=== PATIENT | female | born 1940 | race Caucasian/White ===

== ENCOUNTER 2016-10-24 18:52 | Observation (INO) | payer MEDICARE, OTHER ==
[2016-10-24] MEDS ORDERED: Aspirin 81 MG Tab.Chew PO ONE (19:07)
[2016-10-24] MEDS ORDERED: Morphine 4 MG/ML Syringe IVPUSH ONE (19:08)
[2016-10-24] MEDS: Iopamidol 612 MG/ML 100 ML Bottle IVPUSH ONE ×2 (19:17→19:47)
[2016-10-24] MEDS ORDERED: Sodium Chloride 0.9% 1,000 ML IV ONE (19:30)
[2016-10-24 20:08] LABS: CHLORIDE,CL 104 mmol/L (101-111); SODIUM,NA 139 mmol/L (135-145)
[2016-10-24] MEDS ORDERED: Acetaminophen/HYDROcodone 325-10 MG Tab PO ONE (22:05)
[2016-10-24] MEDS ORDERED: HYDROmorphone 1 MG/ML Syringe IVPUSH ONE (23:12)
[2016-10-24] MEDS ORDERED: Famotidine 20 MG/2 ML SDV IVPUSH ONE (23:27)
--- NOTE | 2016-10-25 00:28 | EDM.PDOC ---
ED HISTORY OF PRESENT ILLNESS - General Chief Complaint: Cardiovascular Problem Stated Complaint: AMB Time Seen by Provider: 10/24/16 19:00 Source of Information: Reports: Patient, EMS History Limitations: Reports: No limitations - History of Present Illness INITIAL COMMENTS - FREE TEXT/NARRATIVE: Ed with c/o diarrhea 50 times today, severe back pain starting in chest radiating to back. Patient points upper epigastric when localizing chest pain. No vomiting. ill with milder symptoms this week. Hx PAT. EMS note VS stable enroute. Rates pain in back at bra line 10/10. Pain started this am, worse tonight. No injury. Severity: severe Location, General: Reports: back Quality: Reports: Pressure, Sharp Associated Symptoms (General): Reports: loss of appetite. Denies: cough, diaphoresis, fever/chills, nausea/vomiting Treatments [employer]: Reports: Other (see below) (immodium at 3pm) - Related Data Allergies/ADRs: Allergies Allergy/AdvReac Type Severity Reaction Status Date / Time caffeine Allergy Cannot Verified 10/24/16 18:52 Remember Penicillins Allergy Cannot Verified 10/24/16 18:52 Remember propoxyphene Allergy UNKNOWN Verified 10/24/16 18:52 Sulfa (Sulfonamide Allergy Cannot Verified 10/24/16 18:52 Antibiotics) Remember Home Meds: Home Meds Metoprolol Succinate [Toprol XL] 50 mg PO DAILY 08/16/13 [History] Rivaroxaban [Xarelto] 20 mg PO DAILY 10/14/14 [History] Diltiazem HCl [Cartia Xt] 1 cap PO DAILY 10/24/16 [History] Flecainide [Tambocor] 50 mg PO BID 10/24/16 [History] Past Medical History HEENT History: Reports: None Cardiovascular History: Reports: Afib Respiratory History: Reports: None Gastrointestinal History: Reports: None Genitourinary History: Reports: UTI, recurrent ENROLLED AGENT History: Reports: None Musculoskeletal History: Reports: None Neurological History: Reports: None Psychiatric History: Reports: Depression Hematologic History: Reports: None Dermatologic History: Reports: None - Infectious Disease History Infectious Disease History: Reports: Chicken pox - Past Surgical History GI Surgical History: Reports: Appendectomy, Cholecystectomy Female Surgical History: Reports: Hysterectomy Musculoskeletal Surgical History: Reports: Hip replacement Social & Family History - Tobacco Use Smoking Status *Q: Never Smoker Second Hand Smoke Exposure: No - Caffeine Use Caffeine Use: Reports: None - Alcohol Use Days Per Week of Alcohol Use: 0 - Recreational Drug Use Recreational Drug Use: No ED ROS GENERAL - Review of Systems Review Of Systems: See Below Constitutional: Reports: no symptoms, chills, decreased appetite HEENT: Reports: No symptoms Respiratory: Reports: No Symptoms Cardiovascular: Reports: Chest pain (radiates to back) ED EXAM, GENERAL - Physical Exam Exam: See Below Exam Limited By: No limitations General Appearance: alert, moderate distress, obese Eye Exam: bilateral eye: EOMI, PERRL Ears: normal external exam Nose: normal inspection Throat/Mouth: Normal inspection Head: atraumatic, normocephalic Neck: normal inspection, full range of motion Respiratory/Chest: no respiratory distress, lungs clear, normal breath sounds Cardiovascular: normal peripheral pulses, regular rate, rhythm GI/Abdominal: abnormal bowel sounds: (hyperactive). No: distended Back Exam: paraspinal tenderness (mid thoracic), vertebral tenderness Extremities: normal inspection, normal range of motion Neurological: alert, oriented, normal cognition Psychiatric: flat affect Skin Exam: Warm, Dry, Intact, Normal color Course - Vital Signs Last Recorded V/S: Last Vital Signs Temp 96.8 F 10/24/16 18:53 Pulse 62 10/24/16 23:36 Resp 18 10/24/16 23:36 BP 91/41 L 10/24/16 23:36 Pulse Ox 97 10/24/16 23:36 - Orders/Labs/Meds Orders: Active Orders 24 hr Category Date Time Status EKG 12 Lead [EKG Documentation Completion] [RC] STAT Care 10/24/16 18:59 Active EKG 12 Lead [EKG Documentation Completion] [RC] URGENT Care 10/24/16 18:59 Inactive CULTURE BLOOD [BC] Stat Lab 10/24/16 19:10 Received CULTURE BLOOD [BC] Stat Lab 10/24/16 20:40 Results UA W/MICROSCOPIC [URIN] Stat Lab 10/24/16 18:56 Uncollected Blood Culture x2 Reflex Set [OM.PC] Stat Oth 10/24/16 18:56 Ordered Labs: Laboratory Tests 10/24/16 10/24/16 10/24/16 Range/Units 19:10 19:10 19:10 WBC 14.6 H (5.0-10.0) 10^3/uL RBC 4.59 (4.2-5.4) 10^6/uL Hgb 15.0 (12.0-16.0) g/dL Hct 43.1 (37.0-47.0) % MCV 93.9 (80-100) fL MCH 32.7 (27.0-34.0) pg MCHC 34.8 (33.0-35.0) g/dL Plt Count 227 (150-450) 10^3/uL Neut % (Auto) 92.9 H (42.2-75.2) % Lymph % (Auto) 3.5 L (20.5-50.1) % [place] % (Auto) 3.1 (2-8) % Eos % (Auto) 0.4 L (1.0-3.0) % Baso % (Auto) 0.1 (0.0-1.0) % D-Dimer, Quantitative 108 (0-400) ng/mL Sodium 139 (135-145) mmol/L Potassium 3.5 L (3.6-5.0) mmol/L Chloride 104 (101-111) mmol/L Carbon Dioxide 25.0 (21.0-31.0) mmol/L Anion Gap 13.5 BUN 15 (7-18) mg/dL Creatinine 0.6 (0.6-1.3) mg/dL Est Cr Clr Drug Dosing 71.03 mL/min Estimated GFR (MDRD) > 60 BUN/Creatinine Ratio 25.00 Glucose 118 H (74-105) mg/dL Lactic Acid (0.5-2.2) mmol/L Calcium 8.5 (8.4-10.2) mg/dl Magnesium 1.6 L (1.8-2.5) mg/dL Total Bilirubin 1.1 H (0.2-1.0) mg/dL AST 48 H (10-42) IU/L ALT 27 (10-60) IU/L Alkaline Phosphatase 92 (42-121) IU/L Troponin I 0.02 (0.00-0.02) ng/ml C-Reactive Protein (0.0-1.3) mg/dL B-Natriuretic Peptide 139 H (0-100) pg/ml Total Protein 6.5 L (6.7-8.2) g/dl Albumin 3.6 (3.2-5.5) g/dl Globulin 2.9 Albumin/Globulin Ratio 1.24 Amylase 52 (28-100) U/L Lipase 33 (22-51) U/L 10/24/16 10/24/16 10/24/16 Range/Units 19:10 20:40 23:00 WBC (5.0-10.0) 10^3/uL RBC (4.2-5.4) 10^6/uL Hgb (12.0-16.0) g/dL Hct (37.0-47.0) % MCV (80-100) fL MCH (27.0-34.0) pg MCHC (33.0-35.0) g/dL Plt Count (150-450) 10^3/uL Neut % (Auto) (42.2-75.2) % Lymph % (Auto) (20.5-50.1) % [place] % (Auto) (2-8) % Eos % (Auto) (1.0-3.0) % Baso % (Auto) (0.0-1.0) % D-Dimer, Quantitative (0-400) ng/mL Sodium (135-145) mmol/L Potassium (3.6-5.0) mmol/L Chloride (101-111) mmol/L Carbon Dioxide (21.0-31.0) mmol/L Anion Gap BUN (7-18) mg/dL Creatinine (0.6-1.3) mg/dL Est Cr Clr Drug Dosing mL/min Estimated GFR (MDRD) BUN/Creatinine Ratio Glucose (74-105) mg/dL Lactic Acid 1.5 (0.5-2.2) mmol/L Calcium (8.4-10.2) mg/dl Magnesium (1.8-2.5) mg/dL Total Bilirubin (0.2-1.0) mg/dL AST (10-42) IU/L ALT (10-60) IU/L Alkaline Phosphatase (42-121) IU/L Troponin I 0.02 (0.00-0.02) ng/ml C-Reactive Protein 2.2 H (0.0-1.3) mg/dL B-Natriuretic Peptide (0-100) pg/ml Total Protein (6.7-8.2) g/dl Albumin (3.2-5.5) g/dl Globulin Albumin/Globulin Ratio Amylase (28-100) U/L Lipase (22-51) U/L Meds: Medications Discontinued Medications Generic Name Dose Route Start Last Admin Trade Name Kyreeq PRN Reason Stop Dose Admin Hydrocodone Bitart/Acetaminophen 1 tab 10/24/16 22:05 10/24/16 22:13 Cameron 325-10 Mg PO 10/24/16 22:06 1 tab ONETIME ONE Administration Aspirin 324 mg 10/24/16 19:07 10/24/16 19:32 Aspirin PO 10/24/16 19:08 Not Given ONETIME ONE Famotidine 20 mg 10/24/16 23:27 10/24/16 23:30 Pepcid IVPUSH 10/24/16 23:28 20 mg ONETIME ONE Administration Hydromorphone HCl 0.5 mg 10/24/16 23:12 10/24/16 23:31 Dilaudid IVPUSH 10/24/16 23:13 0.5 mg ONETIME ONE Administration Sodium Chloride 1,000 mls @ 999 mls/hr 10/24/16 19:30 10/24/16 19:50 Normal Saline IV 10/24/16 20:30 999 mls/hr .BOLUS ONE Administration Iopamidol 100 ml 10/24/16 19:03 10/24/16 19:47 Isovue-300 (61%) IVPUSH 10/24/16 19:04 100 ml ONETIME ONE Administration Morphine Sulfate 4 mg 10/24/16 19:08 10/24/16 19:17 Morphine IVPUSH 10/24/16 19:09 4 mg ONETIME ONE Administration - Radiology Interpretation Free Text/Narrative:: CHEST abdomen and pelvis. 3cm thyroid nodule, Chest negative, T spine degenerative changes, No dissection, Abdomen no obstruction, diverticulosis - Re-Assessments/Exams Free Text/Narrative Re-Assessment/Exam: 10/25/16 00:[address]KG [address] elevation inferior. EKG's faxed and reviewed with art specialist. Recommended repeat since fluid bolus. If troponin normal treat GI symptoms. Repeat returned to baseline. BP improved with IVF. Pain decrease 5/ 10 after morphine. Hydrocodone 10/325 no change. Dilaudid 0.5mg for back pain. No further diarrhea stools during ED visit. Repeat troponin negative. Telmetry maintain NSR 70's. Dr. Bailey accepting of patient for gastroenteritis, and back pain- observation. Departure - Departure Time of Disposition: 23:50 Disposition: Admitted As Inpatient 68 Condition: fair Clinical Impression: Paroxysmal supraventricular tachycardia, Gastroenteritis, Dehydration Back pain Qualifiers: Back pain location: thoracic back pain Chronicity: acute Back pain laterality: midline Qualified Code(s): M54.6 - Pain in thoracic spine - My Orders Last 24 Hours: My Active Orders 10/24/16 18:56 UA W/MICROSCOPIC [URIN] Stat Blood Culture x2 Reflex Set [OM.PC] Stat 10/24/16 18:59 EKG 12 Lead [EKG Documentation Completion] [RC] STAT EKG 12 Lead [EKG Documentation Completion] [RC] URGENT 10/24/16 19:10 CULTURE BLOOD [BC] Stat 10/24/16 20:40 CULTURE BLOOD [BC] Stat - Assessment/Plan Last 24 Hours: My Active Orders 10/24/16 18:56 UA W/MICROSCOPIC [URIN] Stat Blood Culture x2 Reflex Set [OM.PC] Stat 10/24/16 18:59 EKG 12 Lead [EKG Documentation Completion] [RC] STAT EKG 12 Lead [EKG Documentation Completion] [RC] URGENT 10/24/16 19:10 CULTURE BLOOD [BC] Stat 10/24/16 20:40 CULTURE BLOOD [BC] Stat
[2016-10-25] MEDS ORDERED: Zolpidem 5 MG Tab PO PRN (01:28)
[2016-10-25] MEDS ORDERED: Promethazine 25 MG/ML SDV IM PRN (01:28)
[2016-10-25] MEDS ORDERED: Morphine 2 MG/ML Syringe IVPUSH PRN (01:28)
[2016-10-25] MEDS ORDERED: Acetaminophen 325 MG Tab PO PRN (01:28)
[2016-10-25] MEDS ORDERED: Ondansetron 4 MG/2 ML SDV IVPUSH PRN (01:28)
[2016-10-25] MEDS: Sodium Chloride 0.9% with KCl 1,000 ML IV SCH ×2 (03:38→14:24)
--- NOTE | 2016-10-25 05:18 | HP ---
CHIEF COMPLAINT: Profuse diarrhea and chest pain. HISTORY OF PRESENTING ILLNESS: Mrs. Trever Oconnell is a 76-year-old female with medical history significant for hypertension, hyperlipidemia, atrial fibrillation, on chronic anticoagulation with Xarelto, history of severe osteoarthritis, requiring bilateral hip replacement, status post hysterectomy, presented to the ER earlier today with complaints of increasing diarrhea and also increasing chest pain. As per the patient and her at bedside, the patient started having this profuse diarrhea early yesterday and had multiple episodes of loose stools, which were watery in nature. No blood seen in the loose stools. At around 4 p.m., she started having this back pain, which was in between the shoulder blades along the bra line, which was around 8 to 9/10 in intensity, no clear aggravating factors, relieved with pain medication, nonradiating type of pain, not associated with any shortness of breath. She denied any history of similar complaints in the past. She denies any fevers or chills in the last few days. No cough with sputum in the last few days. No complaints of abdominal pain. No other family members sick like her, but last week both and had some stomach upset, but no nausea or vomiting at that time. She claims that the pain has much improved after receiving the pain medications. The patient denied any history of chest pains on exertion. No history of dyspnea on exertion. No history of orthopnea or paroxysmal nocturnal dyspnea. The patient denied any history of hematemesis, hematochezia, or melanotic stools. Normal bowel and bladder habits otherwise. REVIEW OF SYSTEMS: A complete review of system including skin, ear, nose, and throat, cardiovascular system, respiratory system, gastrointestinal system, genitourinary system, hematology, oncology, neurology, allergy, immunology, endocrinology, constitutional were all evaluated and were negative except for the above-said notes. PAST MEDICAL HISTORY: Significant for hypertension, hyperlipidemia, atrial fibrillation, on chronic anticoagulation with Xarelto, fibromyalgia, osteoarthritis, anxiety. PAST SURGICAL HISTORY: Significant for total abdominal hysterectomy with bilateral salpingo-oophorectomy, skin biopsies, hysterectomy, diagnostic colonoscopy, cardiac catheterization, atrial cardioversion, breast biopsy. FAMILY HISTORY: Significant for colon cancer in her mother. SOCIAL HISTORY: The patient denied any history of smoking tobacco. No history of alcohol intake. ALLERGIES: The patient noted to have allergies to caffeine, which causes irregular heart rate. Propoxyphene, which causes near-syncopal episode. Penicillin, which causes itching. Sulfa antibiotics, which causes itching. HOME MEDICATIONS: Include: 1. Xarelto 20 mg daily. 2. Toprol-XL 50 mg daily. 3. Flecainide 50 mg twice a day. 4. Diltiazem 1 tablet daily. PHYSICAL EXAMINATION: Vital signs: Temperature of 99.2, pulse of 70, blood pressure of 109/42, respiratory rate of 20, saturating at 97%. General Appearance: The patient is well oriented to time, place, and person. Follows commands spontaneously. Cardiovascular: S1, S2 heard with normal intensity. No gallops. Respiratory: Clear to auscultation bilaterally. No wheeze. No crepitations. Abdomen: Soft. Bowel sounds positive. Nontender. No rigidity. Extremities: No edema in bilateral lower extremities. Neurology: No gross focal neurological deficits. Skin: No acute rash noted. LABS: WBC 14.6, hemoglobin 15, hematocrit 43.1, platelet count 227. D-dimer 108. Sodium 139, potassium 3.5, chloride 104, bicarb 25, BUN 15, creatinine 0.6, glucose 118, lactic acid 1.5. B-natriuretic peptide 139, troponin 0.02 x2. Albumin 3.6, lipase 33. Amylase 52. ASSESSMENT: 1. Profuse diarrhea. 2. Back pain. 3. Acute hypokalemia. 4. Acute hypomagnesemia. 5. Leukocytosis. 6. Hypertension. 7. Atrial fibrillation. 8. Chronic anticoagulation with Xarelto. 9. Fibromyalgia. 10.Anxiety. PLAN: 1. Profuse diarrhea. The patient presents with profuse diarrhea, exact etiology not clear. The patient denied any recent use of antibiotic usage. No other family member sick at home. She denied any purchasing outside food recently. We will obtain stool for C. diff toxin at this time. We will keep her hydrated with IV fluids. She started throwing up after receiving pain medications, so we will have her on antiemetic protocol. We will have her on Zofran as needed to keep her hydrated with IV fluids. 2. Acute hypokalemia. This is mainly from volume loss. We will have her on oral potassium chloride and also have potassium chloride mixed in her normal saline bag. We will recheck a basic metabolic panel in a.m. 3. Hypomagnesemia. Again, from volume loss. We will have her on oral magnesium. 4. Leukocytosis. This could be reactive in nature. The patient denied any fevers or chills. No cough with sputum. CT chest, abdomen, pelvis benign without any signs of infection. We will await for urinalysis, no indication for antibiotics at this time. 5. Hypertension. The patient's blood pressure seems to be on the lower side. We will need to hold antihypertensive medications for systolic blood pressure less than 110. 6. DVT prophylaxis. The patient is currently on Xarelto, we will continue the same. 7. CODE STATUS: The patient wants to be full code. 8. Discussed with Soledad, ER physician, regarding the plan of care. Reviewed the labs and medications. Reviewed the old charts. [facility] /[id number]
[2016-10-25 07:16] LABS: CHLORIDE,CL 110 mmol/L (101-111); SODIUM,NA 140 mmol/L (135-145)
[2016-10-25] MEDS: Metoprolol Succinate 50 MG Tab.ER PO SCH (08:41)
[2016-10-25] MEDS: Pantoprazole 40 MG Vial IVPUSH SCH ×2 (08:42→21:40)
[2016-10-25] MEDS ORDERED: FLECAINIDE 50 MG PO SCH (09:00)
[2016-10-25] MEDS: FLECAINIDE 100 MG PO SCH ×2 (11:28→21:37)
[2016-10-25] MEDS: Rivaroxaban 10 MG Tab PO SCH (12:40)
--- NOTE | 2016-10-25 13:06 | EKG ---
10/24/2016 - ANABELL BUSH - A 12-lead EKG shows normal sinus rhythm with heart rate of 68, nonspecific ST changes noted on leads II, III, and aVF. No significant ST elevation or ST depression noted on this 12-lead EKG. [facility] /[id number]
[2016-10-25] MEDS ORDERED: Rivaroxaban 10 MG Tab PO SCH (18:00)
[2016-10-25] MEDS: Potassium Chloride 10 MEQ Tab.ER PO SCH (18:51)
[2016-10-26] MEDS: Sodium Chloride 0.9% with KCl 1,000 ML IV SCH ×3 (01:14→23:35)
[2016-10-26] MEDS: Rivaroxaban 10 MG Tab PO SCH (08:39)
[2016-10-26] MEDS: Metoprolol Succinate 50 MG Tab.ER PO SCH (08:39)
[2016-10-26] MEDS: Potassium Chloride 10 MEQ Tab.ER PO SCH ×2 (08:44→18:15)
[2016-10-26] MEDS: FLECAINIDE 100 MG PO SCH ×2 (08:47→21:01)
[2016-10-26] MEDS: Pantoprazole 40 MG Vial IVPUSH SCH ×2 (08:47→21:03)
[2016-10-27 07:56] VITALS: BP 117/61
--- NOTE | 2016-10-27 08:37 | PN ---
DATE: 10/26/2016 HISTORY OF PRESENT ILLNESS: Felicity is a 76-year-old lady, who presented with symptoms of acute gastroenteritis. She had profuse diarrhea, some nausea, no vomiting initially. She denied any blood in the stool. She denied any fever or chills. She did have some associated back pain, but the etiology of this was unclear. She denied any travel outside the country. No exposure to ill individuals, although today when I spoke with her and her regarding that, they had been around a number of young children on Sunday and some of them did have some GI symptoms. It is possible that this is the factor in this illness. She was evaluated in the emergency room. At the time of admission, she was found to have a white count of 14.6, with a left shift. Potassium was 3.5. Renal function was intact with a GFR of more than 60. C-reactive protein was elevated at 2.2. Troponin was negative at 0.02. She has had a total of 3 troponins, which have all been negative. Urinalysis was unremarkable. Two sets of blood cultures remain without growth. Stool for C. diff has been sent and is pending. Review of her clinical data shows that she is taking in adequate fluids. She still has saline running. Appetite has been slowly improving. She is tolerating the diet. She did have some limited nausea with 1 episode of vomiting. She is down to 2-3 stools in the last day, but still feels tired and unwell. PHYSICAL EXAMINATION: General: She was lying in bed. was present in the room. She was in no distress. She participated throughout the visit. Vital Signs: Blood pressure was 111/57, pulse 70, respiratory rate 20, oxygen saturation 96% on room air, temperature was 99.3, T-max overnight was 100.7. She denied any pain. HEENT: Showed mucous membranes to be moist and not dry. Sclerae were nonicteric. No adenopathy. Chest: Showed clear, but diminished bilateral breath sounds. Heart: Showed regular rate and rhythm. Abdomen: Obese, soft, benign. Completely nontender to palpation. No guarding. No rebound. Extremities: Calves were soft and nontender. There were palpable peripheral pulses. Skin: Warm and dry. No rashes. LABORATORY DATA: Repeat lab work this morning shows white count down to 8.2, hemoglobin and hematocrit were 13 and 39, potassium was 3.4. Remainder of the electrolytes were unremarkable. Renal function remained intact, with a GFR of more than 60. Blood sugars are being monitored and have been acceptable, this morning was 106. For now, we will continue with the current medications which consist of IV fluids with potassium supplement, as well as oral potassium supplement. She continues on the her usual medications. We will turn the IV fluids down a bit, and we will re-evaluate her in the morning. If she is feeling better, we may consider discharge to home. No other changes are made in her care today. She is encouraged to be up and out of bed. [facility] /[id number] ARI
[2016-10-27] MEDS: FLECAINIDE 100 MG PO SCH (09:16)
[2016-10-27] MEDS: Potassium Chloride 10 MEQ Tab.ER PO SCH (09:16)
[2016-10-27] MEDS: Rivaroxaban 10 MG Tab PO SCH (09:17)
[2016-10-27] MEDS: Metoprolol Succinate 50 MG Tab.ER PO SCH (09:17)
[2016-10-27] MEDS: Pantoprazole 40 MG Vial IVPUSH SCH (09:18)
--- NOTE | 2016-11-16 08:21 | DISCH ---
DISCHARGE DIAGNOSES: 1. Acute gastroenteritis with profuse diarrhea, resolving. 2. Acute hypokalemia, resolved. 3. Hypomagnesemia, resolved. 4. Acute back pain, resolved. 5. Remainder of past medical history as documented in the admission history and physical. BRIEF HISTORY OF PRESENT ILLNESS: Mrs. Perera is a 76-year-old lady, who presented to the emergency room with a 2-day history of numerous profuse loose stools. Stools were watery without blood. She had some nausea, but no vomiting at the time of admission, but later she had limited, 1 or 2, episodes of emesis. Prior to coming to the ER, she developed an acute back pain between the shoulder blades which she rated it about 8 to 9/10. There was no central chest pressure, no radiation, and no shortness of breath. No fever or chills. No cough. No abdominal pain. Initially she and her stated that no other family members were ill, but on her 2nd hospital day, they did say that they had been around some young children over Easter weekend, some of them with GI symptoms. Whether this was a contributing factor, it is unknown. After evaluation, she was admitted as an acute inpatient. PERTINENT LABS AND X-RAYS: CBC on day of admission showed a white count of 14.6 with a left shift. White count was 8.2 prior to discharge. Hemoglobin and hematocrit were 12.5 and 37. Platelets were normal. Chemistry showed an initial potassium of 3.5, which went down to 3.4 on the 2nd day, but normalized at 4.5 prior to discharge. Renal function was intact with a GFR of more than 60. LFTs were unremarkable. Magnesium was low at 1.6 and was repleted, and on recheck was normal. C-reactive protein was elevated at 2.2. 3 troponins were negative. BNP was only minimally elevated at 139. Amylase and lipase within normal limits. Urinalysis showed a slightly cloudy yellow urine with a specific gravity of 1.015. It was an unremarkable microscopic exam. Two sets of blood cultures showed no growth. Stool was collected and tested for C. difficile and this was negative for toxigenic C difficile. 12-lead EKG was obtained because of her complaint of the central back pain. The EKG showed a normal sinus rhythm with a ventricular rate of 75, normal axis, first-degree AV block. No acute ST-T wave changes. CT scans of the chest, abdomen, and pelvis were obtained with the use of IV contrast. CT scan of the chest showed no acute cardiopulmonary findings. CT scan of the abdomen and pelvis showed no acute intraabdominal pathology. There was no significant interval change when compared to previous study performed on August 28, 2016. HOSPITAL COURSE: She initially was on telemetry and this showed a consistent normal sinus rhythm with no ectopy. She was started on IV fluids with normal saline; this was later switched to normal saline with potassium supplement. She was given IV magnesium as well, to correct her hypomagnesemia. For her back pain, she received limited IV morphine with resolution. Her usual medications were continued. She was given IV Protonix. She was placed on a 2-g sodium diet. She was already on Xarelto, and this was continued for VTE prophylaxis. Review of her clinical data showed she had good oral intake. She was voiding. Initially she had multiple bowel movements, but these decreased following admission. Appetite gradually improved and she was tolerating her diet. Vital signs were stable. She remained afebrile and had only a single temperature of 100.7 on the evening of the 1st hospital day, otherwise was afebrile. She continued to improve. Her IV fluids were hep-locked, and she was encouraged to be out of bed. She tolerated the increase in activity as well as the diet. On day of discharge, she felt ready to go home. She will continue her usual medications and follow regular diet as tolerated. She was also given instructions for a BRAT diet. She was instructed to avoid eating fats and dairy products too soon. Activity level will be as tolerated. She should seek recheck if she develops fever, increased pain, or has more nausea, vomiting, or diarrhea. She will follow up with her personal physician, Dr. Kulkarni in [place]. She also has upcoming followup with Cardiology in October as well. PHYSICAL EXAMINATION: Vital Signs: On the day of discharge showed a blood pressure of 117/61, pulse 68, respiratory rate 20, oxygen saturation 93% on room air, and she is afebrile. HEENT: She was lying comfortably in bed. She was in no distress. She stated she felt better. Vital signs are stable. She was afebrile. HEENT showed moist mucous membranes. Chest: Showed clear, but diminished bilateral breath sounds. Heart: Showed regular rate and rhythm. Abdomen: Obese, soft, benign. Nontender to palpation without guarding or rebound. No masses were appreciated. Skin: Warm and dry to the touch without rashes. She will continue on her usual medications which included; 1. Diltiazem 120 mg daily. 2. Flecainide 50 mg b.i.d. 3. Metoprolol succinate 50 mg daily. 4. Xarelto 20 mg daily. 5. She can use Pepto-Bismol if she develops further stools. ALLERGIES: Caffeine, penicillins, propoxyphene, and sulfa antibiotics. CONDITION AT THE TIME OF DISCHARGE: Much improved and stable. Code status during this admission: Full code. [facility] /[id number] MTDD
== END 2016-10-27 09:45 | disposition home or self-care (01) ==
LOC: DL.ED 18:52 → DL.MS 10-25 → UNDOADMOB 10-25 → DL.MS 10-25 01:28
PROVIDERS: ADMIT Internal Medicine; ATTEND Internal Medicine
DX: R19.7 Diarrhea, unspecified (principal); M54.9 Dorsalgia, unspecified; E87.6 Hypokalemia; E83.42 Hypomagnesemia; D72.829 Elevated white blood cell count, unspecified; M54.6 Pain in thoracic spine; I10 Essential (primary) hypertension; I48.91 Unspecified atrial fibrillation; Z79.01 Long term (current) use of anticoagulants; Z90.710 Acquired absence of both cervix and uterus; Z96.643 Presence of artificial hip joint, bilateral; Z88.8 Allergy status to other drugs, medicaments and biological substances; Z88.0 Allergy status to penicillin; Z88.2 Allergy status to sulfonamides; Z91.09 Other allergy status, other than to drugs and biological substances; Z79.899 Other long term (current) drug therapy; Z90.49 Acquired absence of other specified parts of digestive tract
CPT/HCPCS: 36415; 71260; 74177; 80048; 80053; 81001; 82150; 83605; 83690; 83735; 83880; 84132; 84484; 85025; 85027; 85379; 86140; 87040; 87493; 93005; 93010; 96361; 96374; 96375; 99285; A9270; C9113; J1170; J2270; J2405; J3475; J3480; J7030; Q9967; 96365; 96376; 99219; 99284; G0378; S0028

== ENCOUNTER 2017-08-17 07:38 | Emergency (ER) | payer MEDICARE, OTHER ==
[2017-08-17 07:54] VITALS: BP 113/57
--- NOTE | 2017-08-17 08:07 | EDM.PDOC ---
ED HPI GENERAL MEDICAL PROBLEM - General Chief Complaint: ENT Problem Stated Complaint: CAN'T SWALLOW, Time Seen by Provider: 08/17/17 07:57 Source of Information: Reports: Patient History Limitations: Reports: No Limitations - History of Present Illness INITIAL COMMENTS - FREE TEXT/NARRATIVE: Gradual onset of scratchy throat difficulty swallowing. Notes upper respiratory symptoms of occasional stridor. No wheezing. No chest heaviness. No difficulty with inspiration. No sinus congestion or postnasal drainage. Complains of dry scratchy throat. Occasional nonproductive cough. No abdominal symptoms. No complaints of fever chills or night sweats. No ear pain or pressure. Onset: Gradual Duration: Day(s):, Constant Location: Reports: Other (Scratchy throat) Quality: Reports: Ache Severity: Mild Associated Symptoms: Reports: No Other Symptoms. Denies: Fever/Chills, Headaches - Related Data Allergies Allergy/AdvReac Type Severity Reaction Status Date / Time caffeine Allergy Cannot Verified 08/17/17 07:50 Remember Penicillins Allergy Cannot Verified 08/17/17 07:50 Remember propoxyphene Allergy UNKNOWN Verified 08/17/17 07:50 Sulfa (Sulfonamide Allergy Cannot Verified 08/17/17 07:50 Antibiotics) Remember Home Meds: Home Meds Metoprolol Succinate [Toprol XL] 50 mg PO DAILY 08/16/13 [History] Rivaroxaban [Xarelto] 20 mg PO DAILY 10/14/14 [History] Diltiazem HCl [Cartia Xt] 1 cap PO DAILY 10/24/16 [History] Flecainide [Tambocor] 50 mg PO BID 10/24/16 [History] Past Medical History HEENT History: Reports: None Cardiovascular History: Reports: Afib Respiratory History: Reports: None Gastrointestinal History: Reports: None Genitourinary History: Reports: UTI, Recurrent SIZING END BANDER History: Reports: None Musculoskeletal History: Reports: None Neurological History: Reports: None Psychiatric History: Reports: Depression Endocrine/Metabolic History: Reports: Obesity/BMI 30+ Hematologic History: Reports: None Dermatologic History: Reports: None Other Dermatologic History: rosachea - Infectious Disease History Infectious Disease History: Reports: Chicken Pox - Past Surgical History Musculoskeletal Surgical History: Reports: Hip Replacement Social & Family History - Family History Oncologic: Reports: Colon, Prostate Other Oncologic Family History: mother colon, father prostate - Tobacco Use Smoking Status *Q: Never Smoker Second Hand Smoke Exposure: No - Caffeine Use Caffeine Use: Reports: None - Alcohol Use Days Per Week of Alcohol Use: 0 - Recreational Drug Use Recreational Drug Use: No ED ROS GENERAL - Review of Systems Review Of Systems: See Below Constitutional: Reports: Malaise. Denies: Fever, Chills, Weakness, Night Sweats HEENT: Reports: Throat Pain. Denies: Sinus Problem Respiratory: Reports: Cough Cardiovascular: Reports: No Symptoms Endocrine: Reports: No Symptoms GI/Abdominal: Reports: No Symptoms : Reports: No Symptoms Musculoskeletal: Reports: No Symptoms Skin: Reports: No Symptoms Neurological: Reports: No Symptoms Psychiatric: Reports: No Symptoms Hematologic/Lymphatic: Reports: No Symptoms Immunologic: Reports: No Symptoms ED EXAM, DIZZINESS - Physical Exam Exam: See Below Exam Limited By: No Limitations General Appearance: Alert, WD/WN, No Apparent Distress Eye Exam: Bilateral Eye: PERRL Ears: Normal External Exam, Normal Canal, Normal TMs Nose: Normal Inspection Throat/Mouth: Normal Inspection, Normal Lips, Normal Gums, Normal Oropharynx Neck: Normal Inspection, Supple, Non-Tender, Full Range of Motion. No: Lymphadenopathy (L), Lymphadenopathy (R) Respiratory/Chest: No Respiratory Distress, Lungs Clear Cardiovascular: Regular Rate, Rhythm GI/Abdominal: Normal Bowel Sounds, Soft, Non-Tender Course - Vital Signs Last Recorded V/S: Last Vital Signs Temp 98.2 F 08/17/17 07:50 Pulse 61 08/17/17 07:50 Resp 16 08/17/17 07:50 BP 113/57 L 08/17/17 07:50 Pulse Ox 97 08/17/17 07:50 - Orders/Labs/Meds Orders: Active Orders 24 hr Category Date Time Status CULTURE STREP A CONFIRMATION [RM] Stat Lab 08/17/17 08:15 Results STREP SCRN A RAPID W CULT CONF [RM] Stat Lab 08/17/17 08:15 Results Labs: Laboratory Tests 08/17/17 08/17/17 Range/Units 08:15 08:15 WBC 6.9 (5.0-10.0) 10^3/uL RBC 4.16 L (4.2-5.4) 10^6/uL Hgb 13.4 (12.0-16.0) g/dL Hct 39.9 (37.0-47.0) % MCV 95.9 (80-100) fL MCH 32.2 (27.0-34.0) pg MCHC 33.6 (33.0-35.0) g/dL Plt Count 205 (150-450) 10^3/uL Neut % (Auto) 77.4 H (42.2-75.2) % Lymph % (Auto) 12.7 L (20.5-50.1) % Sebastian % (Auto) 6.6 (2-8) % Eos % (Auto) 3.0 (1.0-3.0) % Baso % (Auto) 0.3 (0.0-1.0) % Sodium 140 (135-145) mmol/L Potassium 3.6 (3.6-5.0) mmol/L Chloride 104 (101-111) mmol/L Carbon Dioxide 27.0 (21.0-31.0) mmol/L Anion Gap 12.6 BUN 8 (7-18) mg/dL Creatinine 0.6 (0.6-1.3) mg/dL Est Cr Clr Drug Dosing 75.84 mL/min Estimated GFR (MDRD) > 60 Glucose 109 H (74-105) mg/dL Calcium 9.0 (8.4-10.2) mg/dl - Radiology Interpretation Free Text/Narrative:: Chest x-ray is clear - Re-Assessments/Exams Free Text/Narrative Re-Assessment/Exam: Repeat examination unchanged. Reviewed labs and x-ray. Discussed differential diagnosis and further instructions. 08/17/17 09:24 Departure - Departure Time of Disposition: 09:21 Disposition: Home, Self-Care 01 Condition: Good Clinical Impression: Viral pharyngitis, Laryngitis - Discharge Information Forms: ED Department Discharge Additional Instructions: Use [id number] medications as needed, such as Tylenol and Motrin. Drink plenty of fluids. Use a humidifier. Prescription for promethazine with codeine to use as directed. Follow-up with regular provider next week. Call or return sooner if problems questions or concerns - My Orders Last 24 Hours: My Active Orders 08/17/17 08:15 CULTURE STREP A CONFIRMATION [RM] Stat STREP SCRN A RAPID W CULT CONF [RM] Stat - Assessment/Plan Last 24 Hours: My Active Orders 08/17/17 08:15 CULTURE STREP A CONFIRMATION [RM] Stat STREP SCRN A RAPID W CULT CONF [RM] Stat
[2017-08-17 08:41] LABS: CHLORIDE,CL 104 mmol/L (101-111); SODIUM,NA 140 mmol/L (135-145)
--- NOTE | 2017-08-17 09:00 | CR ---
Clinical history: 77-year-old female clinical "laryngitis". Interpretation: Cardiac silhouette upper limits of normal and generalized shaggy accentuation of the bronchovascular markings without current signs of alveolar edema or dependent effusion. (Prominent pr oximal pulmonary artery segments CT scan September 2016) No lobar pneumonia, atelectasis/collapse, lung mass or hilar lymphadenopathy. No elevation of the hem idiaphragms CONCLUSION: Relative increased cardiac silhouette (considering differences in technique i.e. PA versu s AP 08 April 2016). EKG? BNP? No lobar pneumonia.
== END 2017-08-17 09:28 | disposition home or self-care (01) ==
LOC: DL.ED 07:38
DX: J04.0 Acute laryngitis (principal); J02.9 Acute pharyngitis, unspecified; Z88.0 Allergy status to penicillin; Z88.8 Allergy status to other drugs, medicaments and biological substances; Z88.2 Allergy status to sulfonamides; Z79.899 Other long term (current) drug therapy
CPT/HCPCS: 36415; 71046; 80048; 85025; 87081; 87430; 99283

== ENCOUNTER 2023-11-19 07:13 | Day surgery (SDC) | payer MEDICARE, OTHER ==
[~2023-11-19 07:13] MED LIST: Midazolam 1 MG/ML 2 ML SDV ONE; fentaNYL 100 MCG/2 ML SDV ONE
[2023-11-19] MEDS: Dextrose 5%-0.45% NaCl 1,000 ML IV SCH (07:32)
[2023-11-19] MEDS: fentaNYL 100 MCG/2 ML SDV IV ONE ×6 (08:34→08:53)
[2023-11-19] MEDS: Midazolam 1 MG/ML 2 ML SDV IV ONE ×8 (08:35→08:54)
[2023-11-19 09:39] VITALS: PULSE 82
[2023-11-19 10:12] VITALS: BP 137/60
== END 2023-11-19 10:20 | disposition home or self-care (01) ==
LOC: DL.ENDO 07:13
PROVIDERS: ATTEND Internal Medicine Gastroenterology
DX: Z12.11 Encounter for screening for malignant neoplasm of colon (principal); K57.30 Diverticulosis of large intestine without perforation or abscess without bleeding; I49.3 Ventricular premature depolarization; F41.1 Generalized anxiety disorder; H91.90 Unspecified hearing loss, unspecified ear; M19.90 Unspecified osteoarthritis, unspecified site; Z98.890 Other specified postprocedural states; Z86.010 Personal history of colon polyps; Z80.0 Family history of malignant neoplasm of digestive organs; Z86.79 Personal history of other diseases of the circulatory system; Z87.39 Personal history of other diseases of the musculoskeletal system and connective tissue; Z88.0 Allergy status to penicillin; Z88.8 Allergy status to other drugs, medicaments and biological substances; Z91.018 Allergy to other foods
CPT/HCPCS: G0105; J2250; J3010; J7042